=== PATIENT | female | born 1955 | race Caucasian/White ===

== ENCOUNTER 2017-04-09 13:11 | Outpatient (RCR) | payer OTHER ==
[~2017-04-09 13:11] MED LIST: BUPR300T55 PO; DIP25 PO; ESTR42.59 VG; FLUO-202 PO; IBUP1TAB90 PO; IBUP200C74 PO; IBUP800T37 PO; LEVO50TA80 PO; LOR5 PO; LOR5/325 PO; OSPE60TA2 PO; PRE20 PO; PROG100C PO; SER50 PO; VAL500 PO
--- NOTE | 2017-04-10 11:51 | RADIOLOGY IMAGING REPORT ---
FACILITY: [facility] PATIENT NAME: Swathi Nascimento : 1955 MR: [id number] V: [id number] EXAM DATE: ORDERING PHYSICIAN: ADELA BYNUM TECHNOLOGIST: Location: [facility] [place] Patient: Swathi Nascimento : 1955 Visit/Account:[id number] Date of Sevice: 04/10/2017 ADDENDUM #1 Dose Lowering Technique One of the following dose optimization techniques was utilized in the performance of this exam: Autom ated exposure control; adjustment of the mA and/or kV according to the patient's size; or use of an i terative reconstruction technique. Specific details can be referenced in the facility's radiology C T exam operational policy. Report Dictated By: Viridiana Brito MD at 04/17/2017 9:28 AM Report E-Signed By: Viridiana Brito MD at 04/17/2017 9:28 AM ORIGINAL REPORT ABDOMEN/PELVIS WITH CONTRAST HISTORY: Screening for colon cancer TECHNIQUE: Following administration of IV contrast contiguous axial images acquired through the abdom en/pelvis. Coronal and sagittal reformatting also performed. CONTRAST: 75 mL Isovue-[id number] COMPARISON: None. FINDINGS: Visualized lung bases: Negative. Hepatobiliary: There are several tiny subcentimeter hypodensities in the right lobe of the liver whi ch may represent cysts although are too small to characterize. A calcified granulomas also noted in the right lobe. Spleen: Numerous calcified granulomas Adrenals: Negative. Pancreas: Negative. Kidneys ureters or bladder: Negative. Genitalia: There is a subtle hyperdense mass right side of the uterus measuring 1.8 cm in diameter p ossibly a fibroid. GI: There is a moderate amount of fecal material seen in the colon which can be seen with constipati on. There is no evidence of bowel wall thickening. The appendix is visualized and does not appear i nflamed. No evidence of small bowel distention. Vessels/spaces/nodes: Negative. Bones/soft tissues: There Is a small umbilical hernia containing fat. There are sclerotic changes se en along the inferior aspect of the left SI joint Additional findings: None pertinent. IMPRESSION: There are several tiny subcentimeter hypodensities in the right lobe of the liver which may represent cysts although are too small to characterize Evidence for prior granulomatous process Subtle 1.8 cm hyperdense mass along the right-sided the uterus. This could represent a fibroid altho ugh correlation with pelvic ultrasound may be helpful Moderate amount of fecal material seen to the colon which can be seen with constipation. Small umbilical hernia containing fat Sclerotic changes along the inferior aspect of the left SI joint may be arthritic in nature or relate d to prior trauma Report Dictated By: Viridiana Brito MD at 04/10/2017 11:37 AM Report E-Signed By: Viridiana Brito MD at 04/10/2017 11:46 AM WSN:[id number]
== END 2017-04-24 ==
LOC: LAB 13:11
PROVIDERS: ATTEND Family Medicine
DX: D37.4 Neoplasm of uncertain behavior of colon (principal); K76.89 Other specified diseases of liver; N85.8 Other specified noninflammatory disorders of uterus; K42.9 Umbilical hernia without obstruction or gangrene
CPT/HCPCS: 36415; 74177; 82565; J7050; Q9967

== ENCOUNTER 2017-06-18 01:32 | Day surgery (SDC) | payer OTHER ==
[~2017-06-18] VITALS: Ht 176.5 cm; Wt 94.3 kg
[2017-06-18] VITALS (7 sets, daily range): BP systolic 89–140; BP diastolic 54–71
[2017-06-18] MEDS ORDERED: PROPOFOL EMUL(*) 10MG/ML 20 ML 40 ML ONE (07:26)
[2017-06-18] MEDS ORDERED: LIDOCAINE/SOD BICARB 8.4% SYR ID ONE (11:30)
[2017-06-18] MEDS ORDERED: MIDAZOLAM 2 MG/2 ML VIAL IVP PRN (11:30)
[2017-06-18] MEDS ORDERED: NORMOSOL R SOLN(*) 1000 ML BAG 1,000 ML IV PRN (11:30)
== END 2017-06-18 13:55 | disposition home or self-care (01) ==
LOC: OR 01:32
PROVIDERS: ATTEND Internal Medicine Gastroenterology
DX: K64.8 Other hemorrhoids (principal); K57.30 Diverticulosis of large intestine without perforation or abscess without bleeding; K63.5 Polyp of colon; K62.1 Rectal polyp
CPT/HCPCS: 00811; 45385; 88305; J2704

== ENCOUNTER → 2017-12-17 | Outpatient (CLI) | payer OTHER ==
--- NOTE | 2017-12-17 13:49 | RADIOLOGY IMAGING REPORT ---
FACILITY: [facility] PATIENT NAME: CANDIDA JAY : [id number] MR: [id number] V: [id number] EXAM DATE: ORDERING PHYSICIAN: CARLTON LOPEZ TECHNOLOGIST: Cynthia Hager PROCEDURE:BILATERAL DIGITAL SCREENING MAMMOGRAM WITH CAD ASSISTED INTERPRETATION & 3D TOMOSYNTHESIS COMPARISON:Prior mammograms 09/11/16, 10/26/12, 12/30/10. INDICATIONS:SCREENING FINDINGS: There is prominent fatty replacement throughout the breasts. The parenchymal pattern has remained stable allowing for difference in mammographic technique & patient positioning. There is no evidence of malignant appearing mass, malignant appearing calcifications or other secondary sign of malignancy in either breast. DIAGNOSTIC CATEGORY 1--NEGATIVE. RECOMMENDATIONS: ROUTINE MAMMOGRAM AND CLINICAL EVALUATION. IMPRESSION: BIRADS 1: Negative. No significant abnormality is seen. Dictated by: Viridiana Brito M.D. on 12/17/2017 at 11:44 Transcribed by: MICHELA on 12/17/2017 at 11:47 Approved by: Viridiana Brito M.D. on 12/17/2017 at 13:49 [facility]
== END ==
LOC: MAMO 12-02 00:33
PROVIDERS: ATTEND Obstetrics & Gynecology
DX: Z12.31 Encounter for screening mammogram for malignant neoplasm of breast (principal)
CPT/HCPCS: 77063; 77067